=== PATIENT | female | born 1985 | race African-American/Black ===

== ENCOUNTER 2016-09-14 02:54 | Emergency (ER) | payer OTHER ==
[2016-09-14 04:17] VITALS: BP 130/82
== END 2016-09-14 04:17 | disposition home or self-care (01) ==
LOC: ED 02:54
DX: M54.16 Radiculopathy, lumbar region (principal)
CPT/HCPCS: J1885

== ENCOUNTER 2017-04-12 13:19 | Emergency (ER) | payer SELFPAY ==
[~2017-04-12] VITALS: Ht 167.6 cm; Wt 76.7 kg
[2017-04-12 13:24] VITALS: Ht 167.6 cm; Wt 76.7 kg
[2017-04-12 18:18] VITALS: BP 136/93
== END 2017-04-12 18:18 | disposition home or self-care (01) ==
LOC: ED 13:19
DX: J20.9 Acute bronchitis, unspecified (principal)
CPT/HCPCS: Q0162

== ENCOUNTER 2017-08-29 23:25 | Emergency (ER) | payer SELFPAY ==
[~2017-08-29] VITALS: Ht 167.6 cm; Wt 74.8 kg
[2017-08-30 01:02] VITALS: BP 139/87
== END 2017-08-30 01:02 | disposition home or self-care (01) ==
LOC: ED 23:25
DX: J40 Bronchitis, not specified as acute or chronic (principal); J06.9 Acute upper respiratory infection, unspecified

== ENCOUNTER 2018-03-13 09:19 | Emergency (ER) | payer OTHER ==
[~2018-03-13] VITALS: Ht 167.6 cm; Wt 77.1 kg
[2018-03-13 09:28] VITALS: Ht 167.6 cm; Wt 77.1 kg
[2018-03-13 11:24] LABS: PLATELET COUNT 276 x10^3mcL (130-400); RED CELL DISTRIBUTION WIDTH 13.3 % (11.5-14.5)
[2018-03-13 11:38] LABS: CALCIUM 8.4 mg/dL (8.5-10.1); CARBON DIOXIDE 27.5 mmol/L (21-32); CHLORIDE SERUM 104 mmol/L (98-107); CREATININE SERUM 0.7 mg/dL (0.6-1.0); GFR1 > 60 mL/min; GLUCOSE SERUM 73 mg/dL (74-106); POTASSIUM SERUM 3.4 mmol/L (3.5-5.1); SODIUM SERUM 138 mmol/L (136-145)
[2018-03-13 11:43] LABS: ALBUMIN 3.7 g/dL (3.4-5.0); ALKALINE PHOSPHATASE 57 U/L (46-116); ALT/SGPT 17 U/L (14-59); AST/SGOT 15 U/L (15-37); BILIRUBIN TOTAL 0.26 mg/dL (0.20-1.00); LIPASE 211 IU/L (73-393); TOTAL PROTEIN, SERUM 7.7 g/dL (6.4-8.2)
[2018-03-13 15:00] VITALS: BP 135/85
== END 2018-03-13 15:26 | disposition home or self-care (01) ==
LOC: ED 09:19
PROVIDERS: Emergency Medicine
DX: R10.11 Right upper quadrant pain (principal)
CPT/HCPCS: 36415; J7030; Q0092; Q9966; Q9967

== ENCOUNTER 2018-03-29 02:45 | Emergency (ER) | payer OTHER ==
[~2018-03-29] VITALS: Ht 167.6 cm; Wt 78.5 kg
[2018-03-29 02:53] VITALS: Ht 167.6 cm; Wt 78.5 kg
[2018-03-29 04:59] VITALS: BP 130/90
== END 2018-03-29 05:06 | disposition home or self-care (01) ==
LOC: ED 02:45
DX: J06.9 Acute upper respiratory infection, unspecified (principal)

== ENCOUNTER 2018-04-19 23:10 | Emergency (ER) | payer OTHER ==
[~2018-04-19] VITALS: Ht 170.2 cm; Wt 79.8 kg
[2018-04-19 23:15] VITALS: Ht 170.2 cm; Wt 79.8 kg
[2018-04-19 23:56] VITALS: BP 133/81
== END 2018-04-19 23:50 | disposition home or self-care (01) ==
LOC: ED 23:10
DX: J06.9 Acute upper respiratory infection, unspecified (principal); J45.909 Unspecified asthma, uncomplicated

== ENCOUNTER 2019-10-17 04:13 | Emergency (ER) | payer OTHER ==
[~2019-10-17] VITALS: Ht 167.6 cm; Wt 75.1 kg
[2019-10-17 04:21] VITALS: Ht 167.6 cm; Wt 75.1 kg
[2019-10-17 05:14] LABS: BASOPHIL % 1.2 % (0-2); PLATELET COUNT 246 x10^3mcL (130-400); RED CELL DISTRIBUTION WIDTH 14.4 % (11.5-14.5)
[2019-10-17 06:45] VITALS: BP 114/68
== END 2019-10-17 06:45 | disposition home or self-care (01) ==
LOC: ED 04:13
PROVIDERS: Emergency Medicine
DX: O20.0 Threatened abortion (principal)
CPT/HCPCS: Q0092